=== PATIENT | female | born 1990 | race American Indian/Alaskan Native ===

== ENCOUNTER 2017-06-07 12:16 | Emergency (ER) | payer SELFPAY ==
[2017-06-07 12:20] VITALS: BP 107/59
--- NOTE | 2017-06-07 13:41 | Emergency Department Report ---
ED Extremity Problem HPI - General Chief complaint: Extremity Injury, Lower Stated complaint: RIGHT FOOT PAIN Time Seen by Provider: 06/07/17 13:37 Source: patient Mode of arrival: Ambulatory Limitations: No Limitations - History of Present Illness Initial comments: 27-year-old -Citizen Of [place] female comes in for complaint of right foot pain and left flank pain going on for a few months. 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 Patient has no past medical history currently takes no medications has no known drug allergies. Last menstrual. S2 3 2017. Vital signs are stable. MD Complaint: extremity pain -: month(s) (3) Location: left, right, other History of Same: No (foot) Radiation: none Severity scale (0 -10): 0 Consistency: constant Improves with: rest Worsens with: walking ED Review of Systems ROS: Stated complaint: RIGHT FOOT PAIN Other details as noted in HPI Constitutional: denies: chills, fever Eyes: denies: eye pain, eye discharge, vision change ENT: denies: ear pain, throat pain Respiratory: denies: cough, shortness of breath, wheezing Cardiovascular: denies: chest pain, palpitations Endocrine: no symptoms reported Gastrointestinal: denies: abdominal pain, nausea, diarrhea Genitourinary: denies: urgency, dysuria, discharge Musculoskeletal: other (foot pain bilateral). denies: back pain, joint swelling , arthralgia Skin: denies: rash, lesions Neurological: denies: headache, weakness, paresthesias Psychiatric: denies: anxiety, depression Hematological/Lymphatic: denies: easy bleeding, easy bruising ED Past Medical Hx - Past Medical History Previous Medical History?: No - Surgical History Past Surgical History?: No - Social History Smoking Status: Never Smoker Substance Use Type: None ED Physical Exam - General Limitations: No Limitations General appearance: alert, in no apparent distress - Head Head exam: Present: atraumatic, normocephalic - Neck Neck exam: Present: normal inspection - Respiratory Respiratory exam: Present: normal lung sounds bilaterally. Absent: respiratory distress - Cardiovascular Cardiovascular Exam: Present: regular rate, normal rhythm. Absent: systolic murmur, diastolic murmur, rubs, gallop - Neurological Exam Neurological exam: Present: alert, oriented X3 - Psychiatric Psychiatric exam: Present: normal affect, normal mood - Skin Skin exam: Present: warm, dry, other (right foot plantar thickness on the bony structure, left foot skin thickness. Under left great toe. Nontender to palpate) ED Course Vital Signs 06/07/17 12:17 Temperature 98.3 F Pulse Rate 82 Respiratory 16 Rate Blood Pressure 107/59 [Left] O2 Sat by Pulse 100 Oximetry ED Medical Decision Making - Medical Decision Making Patient has been evaluated by this provider fast track. I discussed this patient that she has to calluses on her feet. I discussed the patient that she needs to change her shoes also discussed the patient should follow-up with a verify rep or she can get [id number] callous remover from the pharmacy.. This and verbalized understanding. Critical care attestation.: If time is entered above; I have spent that time in minutes in the direct care of this critically ill patient, excluding procedure time. ED Disposition Clinical Impression: Callus of foot Disposition: DC-01 TO HOME OR SELFCARE Is pt being admited?: No Does the pt Need Aspirin: No Condition: Stable Additional Instructions: A Callus is an area of skin which has become relatively thick and hard in response to repeated friction, pressure, or other irritation. Rubbing that is too frequent or forceful will cause blisters rather than allow calluses to form. Since repeated contact is required, calluses are most often found on feet because of frequent walking. Please follow-up with the verify rep. Referrals: PRIMARY CARE, [Primary Care Provider] - 3-5 Days BENJAMIN MILLIGAN DPM [Staff Physician] - 3-5 Days FABIAN MTZ MD [Staff Physician] - 3-5 Days Forms: Work/School Release Form(ED)
== END 2017-06-07 13:56 | disposition home or self-care (01) ==
LOC: ED 12:16
DX: L84 Corns and callosities (principal)
CPT/HCPCS: 99282